=== PATIENT | female | born 1990 | race Two or more races ===

== ENCOUNTER 2022-01-30 07:45 | Inpatient (IN) | payer BC, OTHER ==
[2022-01-30] MEDS ORDERED: AMPICILLIN SODIUM 2 GM VIAL ONE (08:30)
[2022-01-30 08:57] VITALS: BMI 33.6
[2022-01-30] MEDS: ELECTROLYTE-148 SOLN 1,000 ML IV SCH ×2 (09:25→14:10)
[2022-01-30] MEDS ORDERED: AMPICILLIN - 2 GM in SODIUM CHLORIDE 100 ML IVPB ONE (09:29)
[2022-01-30 10:03] LABS: BASO % 0.4 % (0-2.0); EOS % 0.7 % (0-4.5); HEMATOCRIT 36.8 % (32.4-45.2); HEMOGLOBIN 12.3 GM/dL (10.7-15.3); LYMPH % 21.6 % (8-40); MCH 27.9 pg (25.7-33.7); MCHC 33.4 g/dl (32.0-36.0); MEAN CELL VOLUME 83.6 fl (80-96); MEAN PLT VOLUME 9.5 fl (7.5-11.1); MONO % 7.2 % (3.8-10.2); NEUT % 70.1 % (42.8-82.8); PLATELET COUNT 247 10^3/uL (134-434); RDW 14.7 % (11.6-15.6); WHITE BLOOD COUNT 8.5 K/mm3 (4.0-10.0)
[2022-01-30 10:10] LABS: INR 0.97 (0.83-1.09); PROTHROMBIN TIME (PATIENT) 11.2 SEC (9.7-13.0)
[2022-01-30 10:13] LABS: ACTIVATED PTT 27.2 SECONDS (25.2-36.5)
[2022-01-30 10:28] LABS: CALCIUM 8.6 mg/dL (8.5-10.1)
[2022-01-30 10:29] LABS: BLOOD UREA NITROGEN 5.8 mg/dL (7-18)
[2022-01-30 10:32] LABS: CREATININE 0.6 mg/dL (0.55-1.3)
[2022-01-30] MEDS ORDERED: OXYTOCIN 30 UNITS in 0.9% NS 30 UNIT/500 ML INFUS.BAG IVPB SCH (10:45)
[2022-01-30] MEDS ORDERED: OXYTOCIN 30 UNITS in 0.9% NS 30 UNIT/500 ML INFUS.BAG IVPB ONE ×2 (11:59→21:25)
[2022-01-30] MEDS ORDERED: SODIUM CHLORIDE 100 ML IVPB ONE ×2 (12:19→16:13)
[2022-01-30] MEDS ORDERED: AMPICILLIN SODIUM 1 GM VIAL ONE ×2 (12:19→16:13)
[2022-01-30] MEDS: AMPICILLIN - 1 GM in SODIUM CHLORIDE 100 ML IVPB SCH (12:25)
[2022-01-30] MEDS ORDERED: FENTANYL/BUPIVACAINE/NS/PF - PCEA - 50 ML DISP.SYRIN EP ONE ×2 (12:54→16:47)
[2022-01-30] MEDS ORDERED: BUPIVACAINE HCL/PF 0.25% (2.5MG/ML) 10 ML VIAL ONE (13:00)
[2022-01-30] MEDS: FENTANYL/BUPIVACAINE/NS/PF - PCEA - 50 ML DISP.SYRIN EP SCH ×2 (13:20→16:57)
[2022-01-30] MEDS ORDERED: NALOXONE HCL 0.4 MG/ML VIAL IVPUSH PRN (15:06)
[2022-01-30] MEDS ORDERED: AMPICILLIN - 1 GM in SODIUM CHLORIDE 100 ML IVPB SCH ×3 (16:30→20:30)
[2022-01-30] MEDS ORDERED: OXYTOCIN 20 UNITS in 0.9% NS 20 UNIT/1,000 ML INFUS.BAG IV ONE (18:09)
[2022-01-30] MEDS ORDERED: BISACODYL 10 MG SUPP.RECT RC PRN (19:21)
[2022-01-30] MEDS ORDERED: BENZOCAINE 20% 57 GM BOTTLE TP PRN (19:21)
[2022-01-30] MEDS ORDERED: WITCH HAZEL 50% (TUCKS) 40 PAD/JAR PAD TP PRN (19:21)
[2022-01-30] MEDS ORDERED: METHYLERGONOVINE MALEATE 0.2 MG/1 ML AMP IM PRN (19:21)
[2022-01-30] MEDS ORDERED: BENZOCAINE 28 GM HEMORRHOIDAL OINTMENT TP PRN (19:21)
[2022-01-30] MEDS ORDERED: ACETAMINOPHEN 325 MG TABLET (FP) PO PRN (19:21)
[2022-01-30] MEDS ORDERED: OXYTOCIN 20 UNITS in 0.9% NS 20 UNIT/1,000 ML INFUS.BAG IV SCH (19:30)
[2022-01-30 20:08] LABS: CORD BASE EXCESS -3.4 mmol/L (0-2); CORD HCO3 21.7 mmHg (20-29); CORD PCO2 39.4 mmHg (30-78); CORD pH 7.358 (7.14-7.44)
[2022-01-30 20:09] LABS: CORD BASE EXCESS -6.4 mmol/L (0-2); CORD HCO3 20.7 mmHg (20-29); CORD PCO2 46.5 mmHg (30-78); CORD pH 7.267 (7.14-7.44)
[2022-01-30] MEDS: IBUPROFEN 600 MG TABLET (FP) PO PRN (20:35)
[2022-01-31] MEDS: IBUPROFEN 600 MG TABLET (FP) PO PRN ×3 (06:27→20:10)
[2022-01-31 09:32] LABS: BASO % 0.8 % (0-2.0); EOS % 0.9 % (0-4.5); HEMATOCRIT 35.1 % (32.4-45.2); HEMOGLOBIN 11.8 GM/dL (10.7-15.3); LYMPH % 25.4 % (8-40); MCH 28.2 pg (25.7-33.7); MCHC 33.6 g/dl (32.0-36.0); MEAN PLT VOLUME 9.3 fl (7.5-11.1); MONO % 8.8 % (3.8-10.2); NEUT % 64.1 % (42.8-82.8); PLATELET COUNT 220 10^3/uL (134-434); RBC 4.18 M/mm3 (3.60-5.2); RDW 15.1 % (11.6-15.6); WHITE BLOOD COUNT 8.9 K/mm3 (4.0-10.0)
[2022-01-31] MEDS ORDERED: FLU VACC QS2022-23(6MOS UP)/PF 60 MCG/0.5 ML SYRINGE IM ONE (10:00)
[2022-01-31 15:07] VITALS: RESP 18
[2022-01-31] MEDS: AMPICILLIN - 1 GM in SODIUM CHLORIDE 100 ML IVPB SCH (18:50)
[2022-01-31] MEDS: FENTANYL/BUPIVACAINE/NS/PF - PCEA - 50 ML DISP.SYRIN EP SCH (18:51)
[2022-01-31] MEDS ORDERED: SENNOSIDES/DOCUSATE COMBO (SENNA PLUS) TABLET (UD) PO PRN (22:00)
[2022-02-01] MEDS: IBUPROFEN 600 MG TABLET (FP) PO PRN (07:46)
[2022-02-01 09:40] VITALS: BP 116/78; PULSE 96; TEMP 98.7
== END 2022-02-01 13:00 | disposition home or self-care (01) | DRG 807 ==
LOC: JLDR 07:45 → J3W 20:17
PROVIDERS: ADMIT Obstetrics & Gynecology; ATTEND Obstetrics & Gynecology
PROC: 0HQ9XZZ Repair Perineum Skin, External Approach (ICD-10-PCS; principal; 2022-01-30)
PROC: 10E0XZZ Delivery of Products of Conception, External Approach (ICD-10-PCS; 2022-01-30)
DX: O99.824 Streptococcus B carrier state complicating childbirth (principal); Z37.0 Single live birth; O70.0 First degree perineal laceration during delivery; Z3A.38 38 weeks gestation of pregnancy
CPT/HCPCS: 36415; 36600; 59409; 80048; 82803; 85025; 85610; 85730; 86780; 86850; 86900; 86901; C9803-CS; G0008; Q2036; U0003; U0005